=== PATIENT | male | born 1985 | race Caucasian/White ===

== ENCOUNTER → 2022-12-12 | Outpatient (CLI) | payer OTHER ==
--- NOTE | 2022-12-12 10:52 | Diagnostic Imaging Report ---
PROCEDURE: MRI right joint upper extremity without contrast. TECHNIQUE: Multiplanar, multisequence noncontrast enhanced MRI of the right upper extremity was accomplished. INDICATION: Right shoulder pain. COMPARISON: None. FINDINGS: No acute fracture is seen in the right shoulder. Alignment appears normal. There is no joint effusion. The supraspinatus tendon appears intact. The infraspinatus tendon is intact. The teres minor tendon is intact. The subscapularis tendon is intact. No focal muscular atrophy is seen. The long head of the biceps tendon is normal in course and signal. The right glenoid labrum is suboptimally evaluated in the absence of intra-articular contrast. There may be tearing at the anterior/inferior labrum. No paralabral cyst is seen. The acromion has a curved undersurface. The coracoclavicular and coracoacromial ligaments appear intact. There does appear to be mild degenerative change in the acromioclavicular joint. Edema and cystic changes appear more pronounced at the distal clavicle and mild osteolysis is difficult to exclude. IMPRESSION: 1. No high-grade partial-thickness or full-thickness rotator cuff tear in the right shoulder. 2. Questionable tearing at the anterior inferior labrum. No paralabral cyst. 3. Mild degenerative change at the right AC joint versus early distal clavicular osteolysis. Dictated by: Dictated on workstation # [id number]
== END ==
LOC: RAD 08:45
PROVIDERS: ATTEND Emergency Medicine
DX: S56.911D Strain of unspecified muscles, fascia and tendons at forearm level, right arm, subsequent encounter (principal); X58.XXXD Exposure to other specified factors, subsequent encounter
CPT/HCPCS: 73221

== ENCOUNTER → 2023-06-20 | Outpatient (CLI) | payer OTHER ==
--- NOTE | 2023-06-20 16:23 | Diagnostic Imaging Report ---
MRI THORACIC SPINE W/O CON INDICATION: Back pain COMPARISON: None available. TECHNIQUE: Multiplanar, multisequence imaging of the thoracic spine was performed without contrast. FINDINGS: Normal alignment of the thoracic spine. No fracture or concerning marrow replacing process. No Modic endplate changes within the thoracic spine. The thoracic cord is normal in size and signal. No extradural fluid collection. No disc bulges or herniations within the thoracic spine. There are a few scattered benign nerve root sleeve cysts scattered throughout the thoracic spine. No neuroforaminal stenosis. Paravertebral musculature is normal. IMPRESSION: Normal thoracic spine MRI. Dictated by: Dictated on workstation # [id number]
--- NOTE | 2023-06-20 16:38 | Diagnostic Imaging Report ---
PROCEDURE: MR imaging cervical spine without contrast. TECHNIQUE: Multiplanar, multisequence MR imaging of the cervical spine was performed without contrast. INDICATION: Cervical spine pain. COMPARISON: MRI of the thoracic spine performed concurrently. FINDINGS: No spondylolisthesis. There is no fracture or concerning marrow replacing process. No Modic endplate changes within the cervical spine. Cervical cord maintains normal size and signal. No extradural fluid collection. The craniocervical junction is normal in appearance. Paravertebral muscles are unremarkable. There is no cervical lymphadenopathy. Visualized aspects the brachial plexus are normal. C2-C3: Normal. C3-C4: Normal. C4-C5: Small central disc protrusion effaces the ventral thecal sac but does not compress the cord. Overall, there is mild spinal canal stenosis. No neuroforaminal stenosis. C5-C6: Normal. C6-C7: Normal. C7-T1: Normal. IMPRESSION: 1. Single level mild degenerative disc disease at C4-C5 causes mild spinal canal stenosis but no mass effect on the cord. 2. Normal cervical cord. Dictated by: Dictated on workstation # [id number]
== END ==
LOC: RAD 08:54
PROVIDERS: ATTEND Emergency Medicine
DX: M50.321 Other cervical disc degeneration at C4-C5 level (principal); M48.02 Spinal stenosis, cervical region; M54.6 Pain in thoracic spine; R20.2 Paresthesia of skin; R53.83 Other fatigue
CPT/HCPCS: 72141; 72146